=== PATIENT | male | born 1950 | race Caucasian/White ===

== ENCOUNTER 2018-01-16 21:41 | Outpatient (REF) | payer MEDICARE, MEDICAID, SELFPAY ==
[2018-01-16 22:24] LABS: ALT 32 U/L (12-78); AST 23 U/L (15-37); Albumin 3.8 g/dL (3.4-5.0); Alkaline Phosphatase 82 U/L (46-116); Anion Gap 8.4 mmol/L (3-11); BUN 21 mg/dL (7-18); Bilirubin, Total 0.3 mg/dL (0.2-1.0); CO2 27.6 mmol/L (21.0-32.0); CREATININE 1.01 mg/dL (0.70-1.30); Calcium 8.8 mg/dL (8.5-10.1); Chloride 101 mmol/L (98-107); Glucose 94 mg/dL (70-100); Potassium 4.9 mmol/L (3.5-5.1); Sodium 137 mmol/L (136-145); Total Protein 7.2 g/dL (6.4-8.2)
[2018-01-16 22:57] LABS: Hemoglobin A1C 5.8 % (4.5-6.2)
[2018-01-18 11:10] LABS: Lyme Ab w Rflx to Lyme Confirm Negative
[2018-01-19 00:22] LABS: Anaplasma phagocytophilum Negative (Negative); B. miyamotoi PCR Negative (Negative); Babesia divergens/MO-1 Negative (Negative); Babesia duncani Negative (Negative); Babesia microti Negative (Negative); Ehrlichia chaffeensis Negative (Negative); Ehrlichia ewingii/canis Negative (Negative); Ehrlichia muris eauclairensis Negative (Negative)
== END 2018-01-16 22:01 ==
LOC: NCHCN 21:41
PROVIDERS: PCP Family Medicine; Visit Provider Family Medicine
DX: M25.50 Pain in unspecified joint (principal); M54.5 Low back pain; R73.09 Other abnormal glucose; Z11.8 Encounter for screening for other infectious and parasitic diseases
CPT/HCPCS: 80053; 83036; 86618; 87798

== ENCOUNTER 2019-02-27 12:55 | Outpatient (REF) | payer OTHER, SELFPAY ==
[2019-02-27 21:23] LABS: HCT 38.1 % (40.0-50.0); HGB 12.2 g/dL (13.5-17.5); Mean Corpuscular Hemoglobin 30.4 pg (27.0-33.0); Mean Platelet Volume 10.1 fL (8.0-11.0); Platelet Count 490 x1000/uL (130-400); RBC 4.01 m/cumm (4.50-6.00); RBC Distribution Width 13.4 % (11.8-14.1); White Blood Cell Count 9.58 k/cumm (4.4-10.8)
[2019-02-27 21:40] LABS: ALT 34 U/L (16-63); AST 23 U/L (15-37); Albumin 3.9 g/dL (3.4-5.0); Alkaline Phosphatase 86 U/L (46-116); Anion Gap 11.2 mmol/L (3-11); BUN 24 mg/dL (7-18); Bilirubin, Total 0.3 mg/dL (0.2-1.0); CO2 24.8 mmol/L (21.0-32.0); CREATININE 1.12 mg/dL (0.70-1.30); Calcium 9.2 mg/dL (8.5-10.1); Chloride 103 mmol/L (98-107); Glucose 117 mg/dL (70-100); Sodium 139 mmol/L (136-145); TSH (W/Ref FT4) 0.19 uIU/mL (0.36-3.74); Total Protein 7.1 g/dL (6.4-8.2)
[2019-02-27 22:31] LABS: FREE T4 0.98 ng/dL (0.76-1.46)
== END 2019-02-27 13:15 ==
LOC: NCHCN 12:55
PROVIDERS: PCP Family Medicine; Visit Provider Family Medicine
DX: I25.10 Atherosclerotic heart disease of native coronary artery without angina pectoris (principal); R25.1 Tremor, unspecified; K04.7 Periapical abscess without sinus
CPT/HCPCS: 80053; 85027; 84439; 84443

== ENCOUNTER 2019-06-05 09:25 | Outpatient (REF) | payer OTHER, SELFPAY ==
[2019-06-05 12:19] LABS: HCT 34.2 % (40.0-50.0); Mean Corp. HGB Concentration 32.2 g/dL (32.0-36.0); Mean Corpuscular Hemoglobin 30.3 pg (27.0-33.0); Mean Corpuscular Volume 94.2 fL (80-95); Mean Platelet Volume 10.3 fL (8.0-11.0); Platelet Count 448 x1000/uL (130-400); RBC 3.63 m/cumm (4.50-6.00); RBC Distribution Width 14.4 % (11.8-14.1); White Blood Cell Count 8.37 k/cumm (4.4-10.8)
[2019-06-05 12:39] LABS: ALT 27 U/L (16-63); AST 20 U/L (15-37); Albumin 3.9 g/dL (3.4-5.0); Alkaline Phosphatase 110 U/L (46-116); Anion Gap 9.1 mmol/L (3-11); BUN 25 mg/dL (7-18); Bilirubin, Total 0.3 mg/dL (0.2-1.0); CO2 24.9 mmol/L (21.0-32.0); CREATININE 1.21 mg/dL (0.70-1.30); Calcium 8.7 mg/dL (8.5-10.1); Calculated LDL 59 mg/dL (<100); Chloride 105 mmol/L (98-107); Cholesterol 166 mg/dL (<200); Glucose 110 mg/dL (74-106); HDL Cholesterol 45 mg/dL (40-60); Potassium 4.6 mmol/L (3.5-5.1); Sodium 139 mmol/L (136-145); Total Protein 6.9 g/dL (6.4-8.2); Triglyceride 311 mg/dL (<150)
== END 2019-06-05 09:45 ==
LOC: NCHCN 09:25
PROVIDERS: PCP Family Medicine; Visit Provider Family Medicine
DX: K04.7 Periapical abscess without sinus (principal); I10 Essential (primary) hypertension
CPT/HCPCS: 80053; 80061; 85027

== ENCOUNTER 2020-04-09 11:32 | Outpatient (REF) | payer OTHER, MEDICAID, SELFPAY ==
[2020-04-09 21:01] LABS: Abs Immature Grans 0.05 10^3/uL (0.0-0.06); Absolute Basophil Count 0.05 10^3/uL (0.0-0.2); Absolute Eosinophil Count 0.19 10^3/uL (0.0-0.7); Absolute Lymphocyte Count 1.59 10^3/uL (1.2-3.4); Absolute Neutrophil Count 8.78 10^3/uL (1.2-6.7); Basophils % 0.4; Eosinophils % 1.6; HCT 37.3 % (40.0-50.0); HGB 11.8 g/dL (13.5-17.5); Immature Grans % 0.4; Lymphocytes % 13.5; MCH 29.9 pg (27.0-33.0); MCHC 31.6 % (32.0-36.0); MCV 94.7 fL (80-95); MPV 11.4 fL (8.0-11.0); Monocytes % 9.4; Neutrophils % 74.7; Nucleated RBC 0 %; Platelet Count 328 10^3/uL (130-400); RBC 3.94 10^6/uL (4.36-5.78); RDW 15.8 % (11.8-14.1); RDW-SD 54.8 fL; WBC 11.76 10^3/uL (4.4-10.8)
[2020-04-09 21:10] LABS: Absolute Monocyte Count 1.11 10^3/uL (0.1-0.8)
[2020-04-09 21:33] LABS: ALT 39 U/L (16-63); AST 24 U/L (15-37); Albumin 3.6 g/dL (3.4-5.0); Alkaline Phosphatase 85 U/L (46-116); Anion Gap 5.9 mmol/L (3-11); BUN 31 mg/dL (7-18); Bilirubin, Total 0.4 mg/dL (0.2-1.0); CO2 28.1 mmol/L (21.0-32.0); CREATININE 1.82 mg/dL (0.70-1.30); Calcium 8.6 mg/dL (8.5-10.1); Calculated LDL 76 mg/dL (<100); Chloride 102 mmol/L (98-107); Cholesterol 175 mg/dL (<200); Estimated GFR 37.34 (mL/min/1.73m2); Glucose 107 mg/dL (74-106); HDL Cholesterol 54 mg/dL (40-60); Potassium 5.2 mmol/L (3.5-5.1); Sodium 136 mmol/L (136-145); TSH (W/Ref FT4) 0.63 uIU/mL (0.36-3.74); Total Protein 6.6 g/dL (6.4-8.2); Triglyceride 225 mg/dL (<150)
[2020-04-12 10:04] LABS: PSA, Screening 0.3 ng/mL (0.0-4.5)
[2020-04-15 17:19] LABS: Testosterone, Free 1.95 ng/dL (3.47-13.0); Testosterone, Total 78 ng/dL (240-950)
== END 2020-04-09 11:52 ==
LOC: NCHCN 11:32
PROVIDERS: PCP Family Medicine; Visit Provider Family Medicine
DX: R73.03 Prediabetes (principal); I25.10 Atherosclerotic heart disease of native coronary artery without angina pectoris; J44.9 Chronic obstructive pulmonary disease, unspecified; Z12.5 Encounter for screening for malignant neoplasm of prostate
CPT/HCPCS: 80053; 80061; 84153; 84402; 84403; 84443; 85025

== ENCOUNTER 2020-06-14 15:06 | Outpatient (REF) | payer OTHER, MEDICAID, SELFPAY ==
[2020-06-14 14:15] LABS: HCT 37.8 % (40.0-50.0); HGB 11.8 g/dL (13.5-17.5); MCH 30.2 pg (27.0-33.0); MCHC 31.2 % (32.0-36.0); MCV 96.7 fL (80-95); MPV 10.7 fL (8.0-11.0); Platelet Count 362 10^3/uL (130-400); RBC 3.91 10^6/uL (4.36-5.78); RDW 15.2 % (11.8-14.1); RDW-SD 54.1 fL; WBC 11.37 10^3/uL (4.4-10.8)
[2020-06-14 14:49] LABS: ALT 50 U/L (16-63); AST 23 U/L (15-37); Albumin 3.7 g/dL (3.4-5.0); Alkaline Phosphatase 82 U/L (46-116); Anion Gap 7.7 mmol/L (3-11); BUN 21 mg/dL (7-18); Bilirubin, Total 0.3 mg/dL (0.2-1.0); CO2 28.3 mmol/L (21.0-32.0); CREATININE 1.6 mg/dL (0.70-1.30); Calcium 8.9 mg/dL (8.5-10.1); Chloride 104 mmol/L (98-107); Estimated GFR 43.33 (mL/min/1.73m2); Glucose 126 mg/dL (74-106); Potassium 4.3 mmol/L (3.5-5.1); Sodium 140 mmol/L (136-145); Total Protein 6.7 g/dL (6.4-8.2); Vitamin B12 386 pg/mL (193-986)
[2020-06-17 13:16] LABS: Testosterone, Free 5.24 ng/dL (3.47-13.0); Testosterone, Total 169 ng/dL (240-950)
== END 2020-06-14 15:07 | disposition home or self-care (01) ==
LOC: NCHCN 15:06
PROVIDERS: PCP Family Medicine; Visit Provider Family Medicine
DX: E29.1 Testicular hypofunction (principal)
CPT/HCPCS: 80053; 84402; 84403; 85027; 82607

== ENCOUNTER 2020-10-27 16:59 | Outpatient (REF) | payer OTHER, SELFPAY ==
[2020-10-27 21:56] LABS: Abs Immature Grans 0.09 10^3/uL (0.0-0.06); Absolute Basophil Count 0.08 10^3/uL (0.0-0.2); Absolute Eosinophil Count 0.19 10^3/uL (0.0-0.7); Basophils % 0.6; Eosinophils % 1.5; HCT 36.2 % (40.0-50.0); HGB 11.3 g/dL (13.5-17.5); Immature Grans % 0.7; Lymphocytes % 22.5; MCHC 31.2 % (32.0-36.0); MCV 99.5 fL (80-95); MPV 10.9 fL (8.0-11.0); Neutrophils % 64.7; Nucleated RBC 0 %; Platelet Count 342 10^3/uL (130-400); RBC 3.64 10^6/uL (4.36-5.78); RDW 15.5 % (11.8-14.1); RDW-SD 56.5 fL; WBC 12.55 10^3/uL (4.4-10.8)
[2020-10-27 21:58] LABS: Absolute Lymphocyte Count 2.82 10^3/uL (1.2-3.4); Absolute Monocyte Count 1.26 10^3/uL (0.1-0.8); Absolute Neutrophil Count 8.12 10^3/uL (1.2-6.7)
[2020-10-27 22:25] LABS: ALT 48 U/L (16-63); AST 29 U/L (15-37); Albumin 3.6 g/dL (3.4-5.0); Alkaline Phosphatase 79 U/L (46-116); BUN 24 mg/dL (7-18); Bilirubin, Total 0.2 mg/dL (0.2-1.0); CREATININE 1.6 mg/dL (0.70-1.30); Calcium 8.9 mg/dL (8.5-10.1); Chloride 104 mmol/L (98-107); Glucose 139 mg/dL (74-106); Potassium 5.2 mmol/L (3.5-5.1); Sodium 142 mmol/L (136-145); TSH (W/Ref FT4) 0.73 uIU/mL (0.36-3.74); Total Protein 6.5 g/dL (6.4-8.2)
== END 2020-10-27 17:00 | disposition home or self-care (01) ==
LOC: NCHCN 16:59
PROVIDERS: PCP Family Medicine; Visit Provider Family Medicine
DX: D64.9 Anemia, unspecified (principal); M62.81 Muscle weakness (generalized); I10 Essential (primary) hypertension; E78.5 Hyperlipidemia, unspecified
CPT/HCPCS: 80053; 84443; 85025

== ENCOUNTER 2020-11-17 12:41 | Outpatient (REF) | payer OTHER, SELFPAY ==
[2020-11-17 21:51] LABS: Abs Immature Grans 0.05 10^3/uL (0.0-0.06); Absolute Basophil Count 0.08 10^3/uL (0.0-0.2); Absolute Eosinophil Count 0.33 10^3/uL (0.0-0.7); Absolute Lymphocyte Count 1.98 10^3/uL (1.2-3.4); Absolute Monocyte Count 1.31 10^3/uL (0.1-0.8); Absolute Neutrophil Count 6.64 10^3/uL (1.2-6.7); Basophils % 0.8; Eosinophils % 3.2; HCT 35.4 % (40.0-50.0); HGB 11.2 g/dL (13.5-17.5); Immature Grans % 0.5; Lymphocytes % 19.1; MCH 30.8 pg (27.0-33.0); MCHC 31.6 % (32.0-36.0); MCV 97.3 fL (80-95); MPV 10.9 fL (8.0-11.0); Monocytes % 12.6; Neutrophils % 63.8; Nucleated RBC 0 %; Platelet Count 381 10^3/uL (130-400); RBC 3.64 10^6/uL (4.36-5.78); RDW-SD 53.9 fL; WBC 10.39 10^3/uL (4.4-10.8)
[2020-11-17 22:20] LABS: ALT 52 U/L (16-63); AST 32 U/L (15-37); Albumin 3.6 g/dL (3.4-5.0); Alkaline Phosphatase 88 U/L (46-116); Anion Gap 9.7 mmol/L (3-11); BUN 18 mg/dL (7-18); Bilirubin, Total 0.3 mg/dL (0.2-1.0); CO2 27.3 mmol/L (21.0-32.0); CREATININE 1.6 mg/dL (0.70-1.30); Calcium 8.8 mg/dL (8.5-10.1); Chloride 101 mmol/L (98-107); Glucose 104 mg/dL (74-106); NT-proBNP 37 pg/mL (<300); Potassium 4.5 mmol/L (3.5-5.1); Sodium 138 mmol/L (136-145); Total Protein 6.5 g/dL (6.4-8.2)
== END 2020-11-17 12:42 | disposition home or self-care (01) ==
LOC: NCHCN 12:41
PROVIDERS: PCP Family Medicine; Visit Provider Family Medicine
DX: K92.1 Melena (principal); R19.4 Change in bowel habit
CPT/HCPCS: 80053; 83880; 85025

== ENCOUNTER 2021-06-23 16:24 | Outpatient (REF) | payer OTHER, MEDICAID, SELFPAY ==
[2021-06-23 18:26] LABS: HGB 10.8 g/dL (13.5-17.5); MCHC 30.9 % (32.0-36.0); MCV 97.2 fL (80-95); MPV 11.7 fL (8.0-11.0); Platelet Count 390 10^3/uL (130-400); RDW 15.1 % (11.8-14.1); RDW-SD 53.7 fL; WBC 13.17 10^3/uL (4.4-10.8)
[2021-06-23 18:46] LABS: ALT 51 U/L (16-63); AST 27 U/L (15-37); Albumin 3.8 g/dL (3.4-5.0); Alkaline Phosphatase 103 U/L (46-116); Anion Gap 10.1 mmol/L (3-11); BUN 19 mg/dL (7-18); Bilirubin, Total 0.2 mg/dL (0.2-1.0); CO2 26.9 mmol/L (21.0-32.0); CREATININE 1.3 mg/dL (0.70-1.30); Calcium 8.4 mg/dL (8.5-10.1); Calculated LDL 62 mg/dL (<100); Chloride 104 mmol/L (98-107); Cholesterol 167 mg/dL (<200); Glucose 113 mg/dL (74-106); HDL Cholesterol 49 mg/dL (40-60); Potassium 4.4 mmol/L (3.5-5.1); Sodium 141 mmol/L (136-145); TSH (W/Ref FT4) 0.66 uIU/mL (0.36-3.74); Total Protein 6.8 g/dL (6.4-8.2); Triglyceride 280 mg/dL (<150)
== END 2021-06-23 16:25 | disposition home or self-care (01) ==
LOC: NCHCN 16:24
PROVIDERS: PCP Family Medicine; Visit Provider Family Medicine
DX: I10 Essential (primary) hypertension (principal); R73.03 Prediabetes; E78.5 Hyperlipidemia, unspecified; M62.81 Muscle weakness (generalized)
CPT/HCPCS: 80053; 80061; 85027; 83036; 84443

== ENCOUNTER 2024-08-19 12:17 | Outpatient (REF) | payer OTHER, MEDICAID, SELFPAY ==
[2024-08-19 14:34] LABS: HCT 34.9 % (40.0-50.0); MCH 26.8 pg (27.0-33.0); MCHC 31.5 % (32.0-36.0); MCV 85 fL (80-95); MPV 10.6 fL (8.0-11.0); Platelet Count 416 10^3/uL (130-400); RDW-SD 55.4 fL; WBC 14.57 10^3/uL (4.4-10.8)
[2024-08-19 14:49] LABS: ALT 39 U/L (16-63); AST 27 U/L (15-37); Albumin 3.2 g/dL (3.4-5.0); Alkaline Phosphatase 95 U/L (46-116); Anion Gap 6.9 mmol/L (3-11); BUN 26 mg/dL (7-18); Bilirubin, Total 0.3 mg/dL (0.2-1.0); CO2 30.1 mmol/L (21.0-32.0); Calcium 8.8 mg/dL (8.5-10.1); Chloride 102 mmol/L (98-107); Estimated GFR 80.47 (mL/min/1.73m2); Glucose 105 mg/dL (74-106); Hemoglobin A1C 5.8 % (<5.7); Potassium 4.5 mmol/L (3.5-5.1); Sodium 139 mmol/L (136-145); Total Protein 6.7 g/dL (6.4-8.2)
== END 2024-08-19 12:18 | disposition home or self-care (01) ==
LOC: NCHCN 12:17
PROVIDERS: PCP Family Medicine; Visit Provider Family Medicine
DX: R73.03 Prediabetes (principal); I10 Essential (primary) hypertension; D64.9 Anemia, unspecified
CPT/HCPCS: 80053; 85027; 83036